=== PATIENT | female | born 1985 | race African-American/Black ===

== ENCOUNTER → 2017-12-27 | Outpatient (CLI) | payer OTHER ==
--- NOTE | 2017-12-27 16:02 | DIAGNOSTIC IMAGING REPORT ---
RIGHT ANKLE 3 VIEWS CLINICAL HISTORY: Right ankle pain. FINDINGS: 3 views of the right ankle are obtained. No prior studies are available for comparison at the time of dictation. The skeletal structures are well mineralized. No fracture is seen. The ankle mortise is intact. There is no joint effusion. Soft tissue edema is noted in the calf and around the ankle. IMPRESSION: Soft tissue edema with no acute bony abnormality identified. Electronically signed by: Alfie Merchant M.D. 12/27/2017 4:00 PM Dictated Date/Time: 12/27/2017 4:00 PM
== END | disposition home or self-care (01) ==
LOC: C.RAD1850 15:33
PROVIDERS: ATTEND Family Medicine
DX: M25.571 Pain in right ankle and joints of right foot (principal)